=== PATIENT | female | born 1945 | race Caucasian/White ===

== ENCOUNTER 2017-12-26 11:26 | Emergency (ER) | payer MEDICARE ==
[~2017-12-26] VITALS: Ht 162.6 cm; Wt 73.5 kg
[2017-12-26 11:35] VITALS: BP 141/69
== END 2017-12-26 14:16 | disposition home or self-care (01) ==
LOC: ED 14:10
DX: S02.31XA Fracture of orbital floor, right side, initial encounter for closed fracture (principal); S60.212A Contusion of left wrist, initial encounter; W01.0XXA Fall on same level from slipping, tripping and stumbling without subsequent striking against object, initial encounter; Y93.89 Activity, other specified; Y99.8 Other external cause status; Y92.410 Unspecified street and highway as the place of occurrence of the external cause
CPT/HCPCS: 29260; 70480; 99284

== ENCOUNTER 2020-08-14 09:07 | Day surgery (SDC) | payer MEDICARE ==
[~2020-08-14] VITALS: Ht 161.3 cm; Wt 72.7 kg
[2020-08-14] MEDS ORDERED: DIPHENHYDRAMINE 50 MG/ML, 1ML ONE (09:22)
[2020-08-14 09:40] VITALS: BP 140/97
[2020-08-14] MEDS ORDERED: ASPI-963 PO (09:51)
[2020-08-14] MEDS ORDERED: CARV25TA12 PO (09:51)
[2020-08-14] MEDS ORDERED: VALS1TAB30 PO (09:51)
[2020-08-14] MEDS ORDERED: LEVA15HF4 INH (09:51)
[2020-08-14] MEDS ORDERED: METF500T17 PO (09:51)
[2020-08-14] MEDS ORDERED: BUDE10.22 INH (09:51)
[2020-08-14] MEDS ORDERED: CHLO25TA PO (09:51)
[2020-08-14] MEDS ORDERED: LEVO50TA5 PO (09:51)
[2020-08-14] MEDS ORDERED: GLIP5TAB10 PO (09:51)
[2020-08-14] MEDS ORDERED: DIPHENHYDRAMINE 50 MG/ML, 1ML IVPush ONE (10:00)
[2020-08-14 10:09] LABS: BASOPHILS % (AUTO) 1 % (0-1); EOSINOPHILS % (AUTO) 6 % (1-7); LYMPHOCYTES % (AUTO) 20 % (22-44); MEAN CORPUSCULAR HEMOGLOBIN 30.9 pg (27.0-34.8); MEAN CORPUSCULAR HGB CONC 33.6 g/dL (32.4-35.8); MEAN PLATELET VOLUME 9.5 fL (7.4-10.4); MONOCYTES % (AUTO) 8 % (2-9); NEUTROPHILS % (AUTO) 66 % (42-75); PLATELET COUNT 197 x10^3/uL (130-400); RED BLOOD COUNT 4.08 x10^6/uL (3.82-5.3); RED CELL DISTRIBUTION WIDTH 13.6 % (9.6-15.2)
[2020-08-14 10:13] LABS: MD NO
[2020-08-14 10:19] LABS: INTERNATIONAL NORMALIZED RATIO 1.02 (0.93-1.1); PROTHROMBIN TIME 10.9 Seconds (9.6-11.5)
[2020-08-14 10:20] LABS: ANION GAP 6 mmol/L (5-15); CALCIUM 9.1 mg/dL (8.5-10.1); CHLORIDE 105 mmol/L (98-107); CREATININE 0.92 mg/dL (0.55-1.02)
[2020-08-14] MEDS ORDERED: MIDAZOLAM 1 MG/ML, 2ML ONE (10:44)
[2020-08-14] MEDS ORDERED: FENTANYL PF 100 MCG/2ML ONE (10:44)
[2020-08-14] MEDS ORDERED: LIDOCAINE-MPF 1%, 5ML ONE (10:44)
== END 2020-08-14 13:26 | disposition home or self-care (01) ==
LOC: CACL 09:07
PROVIDERS: ATTEND Internal Medicine Cardiovascular Disease
DX: I27.20 Pulmonary hypertension, unspecified (principal); G47.30 Sleep apnea, unspecified; I10 Essential (primary) hypertension; E11.9 Type 2 diabetes mellitus without complications; E78.2 Mixed hyperlipidemia; Z88.1 Allergy status to other antibiotic agents; Z79.899 Other long term (current) drug therapy; Z79.84 Long term (current) use of oral hypoglycemic drugs; Z79.01 Long term (current) use of anticoagulants; Z98.890 Other specified postprocedural states; J45.909 Unspecified asthma, uncomplicated; R06.89 Other abnormalities of breathing
CPT/HCPCS: 36415; 80048; 82330; 82803; 82947; 83880; 84132; 84295; 85014; 85025; 85610; 93451; 99156; C1894; J1200; J2250; J3010